=== PATIENT | female | born 1960 | race Caucasian/White ===

== ENCOUNTER 2019-12-12 08:01 | Day surgery (SDC) | payer OTHER ==
[~2019-12-12 08:01] MED LIST: Lactated Ringers 1,000 ML IV ONE
[2019-12-12] MEDS ORDERED: Lactated Ringers 1,000 ML IV SCH (09:30)
[2019-12-12] MEDS ORDERED: Ketamine HCl 50 MG/ML ONE (10:24)
[2019-12-12] MEDS ORDERED: DIPRIVAN 200 MG/20 ML IV ONE ×2 (10:24→10:36)
[2019-12-12] MEDS ORDERED: ROBINUL ONE (10:33)
[2019-12-12 11:42] VITALS: BP 115/52; PULSE 82; O2SAT 99
--- NOTE | 2019-12-12 13:05 | OP ---
SURGERY DATE/TIME: 12/12/2019 1022 PREOPERATIVE DIAGNOSIS: History of polyps. POSTOPERATIVE DIAGNOSES: 1) History of polyps. 2) Diverticulosis. 3) External hemorrhoids. PROCEDURE: Colonoscopy. SURGEON: Joey Rivera M.D. ANESTHESIA: MAC. SPECIMEN: None. PATIENT CONDITION: Stable. COMPLICATIONS: None. HISTORY: The patient is a 59 year-old female with history of polyps due for a repeat colonoscopy. Risks given bleeding, perforation were discussed with the patient and she elected to proceed. FINDINGS: Pancolonic diverticulosis. Good prep. No lesions. She does have external hemorrhoids. DESCRIPTION OF PROCEDURE: The patient was brought to endoscopy suite. MAC anesthesia was induced. Rectal exam was performed. She does have external hemorrhoids in all three columns. Digital rectal exam was normal. Scope was inserted. Scope was inserted all the way to the terminal ileum. Terminal ileum was normal. The scope was withdrawn. Appendiceal orifice was normal. Ileocecal valve is normal and photographed. Withdrawal time was at least eight minutes. There was good preparation. The entire colon was examined. There was pancolonic diverticulosis at least from the hepatic flexure to the sigmoid. The colon was well visualized and there were no lesions otherwise. Retroflexion showed normal rectum. The patient tolerated the procedure well. RECOMMENDATIONS: The next screening colonoscopy would be in ten years.
== END 2019-12-12 12:15 | disposition home or self-care (01) ==
LOC: SDC 08:01
PROVIDERS: ATTEND Surgery
DX: Z09 Encounter for follow-up examination after completed treatment for conditions other than malignant neoplasm (principal); Z86.010 Personal history of colon polyps; K57.30 Diverticulosis of large intestine without perforation or abscess without bleeding; K64.4 Residual hemorrhoidal skin tags
CPT/HCPCS: J2704